=== PATIENT | male | born 1970 | race Caucasian/White ===

== ENCOUNTER 2024-12-11 16:12 | Emergency (ER) | payer SELFPAY ==
--- NOTE | 2024-12-11 16:14 | CTR_ITS ---
PROCEDURE INFORMATION: Exam: CT Head Without Contrast Exam date and time: 12/11/2024 4:16 PM Age: 54 years old Clinical indication: Stroke-like symptoms; Visual disturbance; Additional info: Stroke like symptoms TECHNIQUE: Imaging protocol: Computed tomography of the head without contrast. Radiation optimization: All CT scans at this facility use at least one of these dose optimization techniques: automated exposure control; mA and/or kV adjustment per patient size (includes targeted exams where dose is matched to clinical indication); or iterative reconstruction. Other technique: STROKE PROTOCOL was implemented. COMPARISON: No relevant prior studies available. RADIATION DOSE METRICS: Total DLP (mGy-cm): 1020.91 FINDINGS: Brain: No evidence of intra-axial or extra-axial hemorrhage. No mass effect or midline shift. Shankar-white differentiation is maintained. Basilar cisterns are patent. Cerebral ventricles: No hydrocephalus. Paranasal sinuses: The visualized paranasal sinuses are well aerated. Mastoid air cells: The visualized mastoids and middle ears are clear. Bones: Calvarium is intact. No evidence of acute fracture. Soft tissues: No gross soft tissue abnormality. CT/CT head thrombolytic 20602 IMPRESSION: 1. No acute intracranial abnormality. ASSESSMENT: ASPECTS ([place] Stroke Program Early CT Score) is 10.
[2024-12-11 16:23] VITALS: BP 158/109; PULSE 105; RESP 16; TEMP 36.7; O2SAT 90; BMI 25.9
--- NOTE | 2024-12-11 16:23 | W.ED.GENADLT ---
HPI - General Adult General: Chief complaint: Neuro Symptoms/Deficit Stated complaint: confusion - vision changes Time Seen by Provider: 12/11/24 16:21 History of Present Illness: 54-year-old male presents emergency room stating he had a brief episode where he got very confused disoriented felt like he had been drinking almost and then it resolved. By the time he arrives here he states he is very tired but he has no other symptoms. No loss of consciousness there was no seizure-like activity. Blood pressure elevated. He does have a history of hypertension. No chest pain or abdominal pain has does have a bit of a headache. Associated symptoms: Deny chest pain, dyspnea or rash Related Data Previous Rx's ?Medication ?Instructions ?Recorded aspirin 81 mg tablet,delayed 81 mg PO DAILY #30 tabs 12/11/24 release Allergies Allergy/AdvReac Type Severity Reaction Status Date / Time No Known Allergies Allergy Verified 12/11/24 16:26 Review of Systems Const: Denies: fever(s) or chills Card: Denies: chest pain Resp: Denies: dyspnea GI: Denies: abdominal pain : Denies: dysuria, urinary frequency or urinary urgency Musc: Denies: neck pain or back pain Skin/Breast: Denies: rash Physical Exam Const: GENERAL APPEARANCE: cooperative ORIENTATION/CONSCIOUSNESS: Yes awake, Yes oriented to person, Yes oriented to place and Yes oriented to time HENMT: COMMON NORMALS: normocephalic, atraumatic and hearing grossly normal bilaterally HEAD & SCALP: normocephalic and atraumatic Resp: COMMON NORMALS: normal respiratory effort, No retractions, No use of accessory muscles and clear to auscultation bilaterally AUSCULTATION: clear to auscultation bilaterally Cardio: COMMON NORMALS: regular rate, regular rhythm and No murmurs present (Cardio) RATE: regular rate RHYTHM: regular rhythm GI: COMMON NORMALS: Soft to palpation and No hepatosplenomegaly present AUSCULTATION: Yes normoactive bowel sounds PALPATION: Yes Soft to palpation, No Tenderness to palpation present (GI), No Guarding due to palpation present (GI) and Yes No hepatosplenomegaly present Extremity: COMMON NORMALS: normal to inspection, capillary refill normal, no clubbing, cyanosis or edema, no calf tenderness and no pedal edema Neuro: SENSORIUM/ORIENTATION: Yes oriented to person, Yes oriented to place and Yes oriented to time Skin: COMMON NORMALS: no rashes or lesions noted GENERAL SKIN EXAM: no rashes or lesions noted Course Vital Signs: Vital signs: Vital Signs Temperature 98.1 F 12/11/24 16:23 Pulse Rate 108 H 12/11/24 18:25 Respiratory Rate 16 12/11/24 18:04 Blood Pressure 149/99 12/11/24 18:25 Pulse Oximetry 97 12/11/24 18:25 Oxygen Delivery Me thod Room Air 12/11/24 18:04 MDM - General Adult Medical Decision Making CT head unremarkable patient has returned to baseline is ambulatory without difficulty. Discharge patient home we did give him hydralazine along emergency room for his blood pressure discussed with him to monitor blood pressure closely continue his current medications is not taking them today we did add aspirin daily and follow-up with his primary care doctor as recurrent symptoms return to the emergency room Lab Data 12/11/24 16:45 12/11/24 16:[address] 12/11/24 16:14 IMPRESSION: 1. No acute intracranial abnormality. ASSESSMENT: ASPECTS ([place] Stroke Program Early CT Score) is 10. ADDENDUM: 12/11/24 1632 The findings were verbally communicated by telephone with Dr. BURNS at 4:31 PM CDT on 12/11/2024. Chest X-Ray 12/11/24 16:51 IMPRESSION: 1. No acute cardiopulmonary abnormality. Laboratory Results WBC 6.64 10^3/uL (3.29-11.43) 12/11/24 16:45 RBC 5.17 10^6/uL (3.85-5.65) 12/11/24 16:45 Hgb 16.30 g/dL (11.27-16.99) 12/11/24 16:45 Hct 46.6 % (37-53) 12/11/24 16:45 MCV 90.1 fl (82-101) 12/11/24 16:45 MCH 31.5 pg (27-33) 12/11/24 16:45 MCHC 35.0 g/dL (30-55) 12/11/24 16:45 RDW 12.0 % (12.1-15.1) L 12/11/24 16:45 Plt Count 257 10^3/cmm (157-399) 12/11/24 16:45 MPV 9.1 fL (7.4-10.4) 12/11/24 16:45 Neut % (Auto) 50.4 % 12/11/24 16:45 Lymph % (Auto) 41.6 % 12/11/24 16:45 [place] % (Auto) 5.4 % 12/11/24 16:45 Eos % (Auto) 1.7 % 12/11/24 16:45 Baso % (Auto) 0.6 % 12/11/24 16:45 Neut # (Auto) 3.35 10^3/uL (1.8-7.7) 12/11/24 16:45 Lymph # (Auto) 2.8 10^3/uL (0.8-4.8) 12/11/24 16:45 [place] # (Auto) 0.4 10^3/uL (0.2-0.9) 12/11/24 16:45 Eos # (Auto) 0.1 10^3/uL (0.0-0.8) 12/11/24 16:45 Baso # (Auto) 0.0 10^3/uL (0.0-0.1) 12/11/24 16:45 Nucleated RBC % (auto) 0 % 12/11/24 16:45 Nucleated RBCs # 0.0 /100WBC 12/11/24 16:45 PT 13.10 SECONDS (12.1-14.9) 12/11/24 16:45 INR 0.92 (0.8-1.2) 12/11/24 16:45 APTT 27.7 SECONDS (23.9-36.7) 12/11/24 16:45 Sodium 143 mmol/L (136-145) 12/11/24 16:45 Potassium 3.7 mmol/L (3.5-5.1) 12/11/24 16:45 Chloride 106 mmol/L (98-107) 12/11/24 16:45 Carbon Dioxide 21 mmol/L (22-29) L 12/11/24 16:45 Anion Gap 19.7 (5-19) H 12/11/24 16:45 BUN 13 mg/dL (6-20) 12/11/24 16:45 Creatinine 0.7 mg/dL (0.7-1.2) 12/11/24 16:45 GFR Calculation 118.4 mL/min (90-130) 12/11/24 16:45 Glucose 90 mg/dL (65-115) 12/11/24 16:45 POC Glucose 104 mg/dL (70-110) 12/11/24 16:22 Calculated Osmolality 296 mOsm/kg (285-295) H 12/11/24 16:45 Calcium 8.6 mg/dL (8.5-10.5) 12/11/24 16:45 Total Bilirubin 0.2 mg/dL (0.15-1.2) 12/11/24 16:45 AST 27 U/L (0-40) 12/11/24 16:45 ALT 45 U/L (0-41) H 12/11/24 16:45 Alkaline Phosphatase 72 U/L (40-130) 12/11/24 16:45 Total Protein 7.4 g/dL (6.6-8.7) 12/11/24 16:45 Albumin 4.5 g/dL (3.5-5.2) 12/11/24 16:45 Globulin 2.9 g/dL (1.3-4.6) 12/11/24 16:45 Urine Color Yellow (Yellow) 12/11/24 16:46 Urine Appearance Clear (CLEAR) 12/11/24 16:46 Urine pH 5.5 (5-7) 12/11/24 16:46 Ur Specific [place] 1.008 (1.005-1.030) 12/11/24 16:46 Urine Protein Negative (Negative) 12/11/24 16:46 Urine Glucose (UA) Negative (Normal) 12/11/24 16:46 Urine Ketones Negative (Negative) 12/11/24 16:46 Urine Blood Negative (Negative) 12/11/24 16:46 Urine Nitrate Negative (Negative) 12/11/24 16:46 Urine Bilirubin Negative (Negative) 12/11/24 16:46 Urine Urobilinogen 0.2 mg/dL (Negative) 12/11/24 16:46 Ur Leukocyte Esterase Negative (Negative) 12/11/24 16:46 Urine RBC 0-2 /hpf (0-2) 12/11/24 16:46 Urine WBC 0-5 /hpf (0-5) 12/11/24 16:46 Ur Squamous Epith Cells 0-5 /hpf (0-5) 12/11/24 16:46 Amorphous Sediment Not Reportable 12/11/24 16:46 Urine Bacteria None seen /hpf (NONE) 12/11/24 16:46 Hyaline Casts 0-4 /lpf H 12/11/24 16:46 Urine Opiates Screen Negative ng/mL (Negative) 12/11/24 16:46 Ur Barbiturates Screen Negative ng/mL (Negative) 12/11/24 16:46 Ur Phencyclidine Scrn Negative ng/mL (Negative) 12/11/24 16:46 Ur Amphetamines Screen Negative ng/mL (Negative) 12/11/24 16:46 U Benzodiazepines Scrn Negative ng/mL (Negative) 12/11/24 16:46 Urine Cocaine Screen Negative ng/mL (Negative) 12/11/24 16:46 U Marijuana (THC) Screen Negative ng/mL (Negative) 12/11/24 16:46 All radiology interpretation(s) finalized by discharge Discharge Plan Discharge Patient Disposition: Home Clinical Impression: Headache, Hypertension Condition: Stable Prescriptions: New aspirin 81 mg tablet,delayed release (DR/EC) 81 mg PO DAILY Qty: 30 0RF Discharge Orders: Discharge ED (Routine); Ordered 12/11/24 Ordered By: Kirk Burns Referrals: Carlos Calvo MD [Primary Care Provider] Discharge Diet: Usual diet Discharge Activity: Resume usual activity Patient Instructions: Opioid Safety, Pain Management Activity Restrictions/Additional Instructions: Thank you for choosing [facility] for your healthcare needs today. It is very important that you follow up as instructed or that you return to the Emergency Department should you have concerns or if your condition changes or worsens in any way. You are seen in the emergency room after a episode of weakness and confusion. Your blood pressure was elevated CT of your head and your exam did not suggest stroke at this time. We did give you medicine for your blood pressure. Recommend you follow-up with your primary care doctor to monitor your blood pressure continue all previously prescribed medications. Print Language: Kazakh Coding Level of Care Code ED Knife Blade Polisher for Norberto Borjas NIH stroke score NIHSS Level Of Consciousness - 1a: 0 Level Of Consciousness Questions - 1b: Both Correct Level Of Consciousness Commands - 1c: Both Correct Best Gaze - 2: Normal Visual Gao - 3: No Visual Loss Facial Palsy - 4: Normal Motor Arm Right - 5: No Drift Motor Arm Left - 5: No Drift Motor Leg Right - 6: No Drift Motor Leg Left - 6: No Drift Limb Ataxia - 7: Absent Sensory - 8: Normal Best Language - 9: No Aphasia Dysarthia - 10: Normal Extinction And Inattention - 11: 0 Score Total Score: 0
[2024-12-11 16:25] LABS: Glucose Point of Care 104 mg/dL (70-110)
[2024-12-11 16:49] VITALS: BP 143/100; PULSE 109
--- NOTE | 2024-12-11 16:50 | ECG_ITS ---
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 Measurements Intervals [place] Rate: 97 P: 44 DE: 141 QRS: 44 QRSD: 100 T: 66 QT: 360 QTc: 458 Interpretive Statements SINUS RHYTHM NONSPECIFIC T-WAVE ABNORMALITY No previous ECG available for comparison Electronically Signed On 12-11-2024 21:51:04 CDT by Caroline Beach M.D. [email or web address]
--- NOTE | 2024-12-11 16:51 | XRR_ITS ---
PROCEDURE INFORMATION: Exam: XR Chest Exam date and time: 12/11/2024 5:08 PM Age: 54 years old Clinical indication: Dyspnea; Prior surgery; Surgery date: 6+ months; Surgery type: Spine; Additional info: Dyspnea/cough TECHNIQUE: Imaging protocol: Radiologic exam of the chest. Views: 1 view. COMPARISON: No relevant prior studies available. FINDINGS: Lungs: No focal consolidation. Pleural spaces: No evidence of pneumothorax. No evidence of pleural effusion. Heart/Mediastinum: Cardiomediastinal silhouette is within normal limits. Bones/joints: No evidence of acute osseous abnormality. Simulator leads project over the midthoracic spine. XR/XR chest 1V portable [id number] IMPRESSION: 1. No acute cardiopulmonary abnormality.
[2024-12-11 17:02] LABS: Bilirubin Urine Negative (Negative); Blood Urine Negative (Negative); Glucose Urine UA Negative (Normal); Ketones Urine Negative (Negative); Leukocyte Esterase Urine Negative (Negative); Nitrate Urine Negative (Negative); Protein Urine Negative (Negative); Specific Gravity, Urine 1.008 (1.005-1.030); Urine Appearance Clear (CLEAR); Urine Color Yellow (Yellow); Urobilinogen Urine 0.2 mg/dL (Negative); pH Urine 5.5 (5-7)
[2024-12-11 17:04] LABS: Add Urine Microscopic? YES; Bacteria Urine None Seen /hpf; Hyaline Casts Urine 0-4 /lpf; RBC Urine 0-2 /hpf (0-2); Squamous Epithelial Cell Urine 0-5 /hpf (0-5); WBC Urine 0-5 /hpf (0-5)
[2024-12-11] MEDS: sodium chloride 0.9% 1,000 ML 999 ML IV (17:06)
[2024-12-11 17:11] LABS: Amphetamines Screen Urine Negative (Negative); Barbiturates Screen Urine Negative (Negative); Benzodiazepines Screen Urine Negative (Negative); Cocaine Screen Urine Negative (Negative); Opiate Screen Urine Negative (Negative); PCP Screen Urine Negative (Negative); THC Screen Urine Negative (Negative)
[2024-12-11 17:15] LABS: Basophils % 0.6 %; Eosinophils # 0.1 10^3/uL (0.0-0.8); Eosinophils % 1.7 %; Hematocrit 46.6 % (37-53); Lymphocytes # 2.8 10^3/uL (0.8-4.8); Lymphocytes % 41.6 %; Mean Corpuscular Hemoglobin 31.5 pg (27-33); Mean Corpuscular Volume 90.1 fl (82-101); Mean Platelet Volume 9.1 fL (7.4-10.4); Monocytes # 0.4 10^3/uL (0.2-0.9); Monocytes % 5.4 %; Neutrophils # 3.35 10^3/uL (1.8-7.7); Neutrophils % 50.4 %; Nucleated Red Blood Cells % 0 %; Platelet Count 257 10^3/cmm (157-399); Red Blood Count 5.17 10^6/uL (3.85-5.65); White Blood Count 6.64 10^3/uL (3.29-11.43)
[2024-12-11 17:28] LABS: INR 0.92 (0.8-1.2)
[2024-12-11 17:29] LABS: Partial Thromboplastin Time 27.7 SECONDS (23.9-36.7)
[2024-12-11 17:33] LABS: Alanine Aminotransferase 45 U/L (0-41); Albumin Level 4.5 g/dL (3.5-5.2); Alkaline Phosphatase 72 U/L (40-130); Anion Gap 19.7 (5-19); Aspartate Amino Transferase 27 U/L (0-40); Blood Urea Nitrogen 13 mg/dL (6-20); Calcium 8.6 mg/dL (8.5-10.5); Carbon Dioxide 21 mmol/L (22-29); Chloride 106 mmol/L (98-107); Creatinine Clr Calc Pharmacy 129.8223; Globulin 2.9 g/dL (1.3-4.6); Glomerular Filtration Rate 118.4 mL/min (90-130); Glucose 90 mg/dL (65-115); Osmolality Calculated 296 mOsm/kg (285-295); Potassium 3.7 mmol/L (3.5-5.1); Sodium 143 mmol/L (136-145); Total Protein 7.4 g/dL (6.6-8.7)
[2024-12-11 17:54] VITALS: BP 147/105; PULSE 90; RESP 20; O2SAT 92
[2024-12-11 18:04] VITALS: BP 180/113; PULSE 86; RESP 16; O2SAT 91
[2024-12-11 18:15] LABS: Total Bilirubin 0.2 mg/dL (0.15-1.2)
[2024-12-11] MEDS: hyDRALAzine 20 mg/mL INJ 1 mL 10 MG IVP (18:17)
[2024-12-11 18:25] VITALS: BP 149/99; PULSE 108; O2SAT 97
== END 2024-12-11 18:29 | disposition home or self-care (01) ==
PROVIDERS: Emergency Provider Family Medicine; PCP Family Medicine
DX: R51.9 Headache, unspecified (principal); I10 Essential (primary) hypertension
CPT/HCPCS: 36416; 70450; 71045; 80053; 80306; 81001; 82962; 85025; 85610; 85730; 93005; 96361; 96374; 99285; J0360; J7030

== ENCOUNTER 2025-06-18 11:08 | Emergency (ER) | payer BC, SELFPAY ==
--- NOTE | 2025-06-18 11:09 | XR_ITS ---
WS: [id number] Portable AP upright chest, 06/18/2025 Clinical Data: chest pain Comparison: Portable chest, 12/11/2024 Findings: No nodules, masses or effusions are seen. The heart is normal. The pulmonary vascularity is not increased. No pneumonia or pneumothorax is seen. Monitor leads are on the chest wall. XR/XR chest 1V portable [id number] Impression: Negative chest.
--- NOTE | 2025-06-18 11:09 | ECG_ITS ---
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1970 Requested By: Kirk Marshall Order Number: [id number] Reading MD: KELLEY MCFARLAND Measurements Intervals [place] Rate: 83 P: 31 [place]: 116 QRS: 53 QRSD: 122 T: 57 QT: 376 QTc: 444 Interpretive Statements SINUS RHYTHM WITH SHORT [place] INTERVAL MODERATE INTRAVENTRICULAR CONDUCTION DELAY [110+ ms QRS DURATION] NONSPECIFIC T-WAVE ABNORMALITY Compared to ECG 12/11/2024 16:50:45 Short [place] interval now present Intraventricular conduction delay now present T-wave abnormality still present Electronically Signed On 06-19-2025 11:57:52 IMMIGRATION CONSULTANT by KELLEY MCFARLAND [email or web address]
--- NOTE | 2025-06-18 11:10 | W.ED.CHESTPA ---
HPI - Chest Pain General: Chief Complaint: Chest Pain Stated Complaint: chest pain Time Seen by Provider: 06/18/25 11:09 History of Present Illness: 55-year-old male presents emergency room with complaint of chest discomfort numbness and tingling throughout his body particularly highlights his face and his lower extremities began this morning is already resolved it was bilateral when it was present. In his lower extremities it was from the knees to his feet. He has had a moderately productive cough had a few episodes of diarrhea he thinks it is because he drank some remington and whiskey last night as a home cough remedy. He is otherwise awake and alert there is no focal deficits. He has no history of PE or DVT he is not on any anticoagulants. He has no history of any arrhythmias or coronary artery disease he is pain-free at this time. The chest pressure discomfort as he describes it has been intermittent for the last several months. Associated symptoms: Reports dyspnea; Deny abdominal pain or fever(s) Related Data Home Medications ?Medication ?Instructions ?Recorded ?Confirmed azelastine 137 mcg (0.1 %) nasal 2 spray intranasal BID 06/18/25 06/18/25 spray clonidine HCl 0.1 mg tablet See Rx Instructions .Route 06/18/25 06/18/25 .COMPLEX PRN Blood Pressure fluticasone propionate 50 2 spray intranasal DAILY 06/18/25 06/18/25 mcg/actuation nasal spray,suspension irbesartan 75 mg tablet 75 mg PO BEDTIME 06/18/25 06/18/25 methocarbamol 750 mg tablet 750 mg PO TID 06/18/25 06/18/25 naproxen 500 mg tablet 500 mg PO BID PRN Pain 06/18/25 06/18/25 pantoprazole 20 mg tablet,delayed 20 mg PO DAILY 06/18/25 06/18/25 release Previous Rx's ?Medication ?Instructions ?Recorded aspirin 81 mg tablet,delayed 81 mg PO DAILY #30 tabs 12/11/24 release Allergies Allergy/AdvReac Type Severity Reaction Status Date / Time No Known Allergies Allergy Verified 12/11/24 16:26 Review of Systems Const: Denies: fever(s) or chills Card: Reports: chest pain Resp: Reports: dyspnea and productive cough GI: Reports: diarrhea; Denies: abdominal pain : Denies: dysuria, urinary frequency or urinary urgency Musc: Denies: neck pain or back pain Skin/Breast: Denies: rash Physical Exam Const: GENERAL APPEARANCE: cooperative ORIENTATION/CONSCIOUSNESS: Yes awake, Yes oriented to person, Yes oriented to place and Yes oriented to time HENMT: COMMON NORMALS: normocephalic, atraumatic and hearing grossly normal bilaterally HEAD & SCALP: normocephalic and atraumatic Resp: COMMON NORMALS: normal respiratory effort, No retractions, No use of accessory muscles and clear to auscultation bilaterally AUSCULTATION: clear to auscultation bilaterally Cardio: COMMON NORMALS: regular rate, regular rhythm and No murmurs present (Cardio) RATE: regular rate RHYTHM: regular rhythm GI: COMMON NORMALS: Soft to palpation and No hepatosplenomegaly present AUSCULTATION: Yes normoactive bowel sounds PALPATION: Yes Soft to palpation, No Tenderness to palpation present (GI), No Guarding due to palpation present (GI) and Yes No hepatosplenomegaly present Extremity: COMMON NORMALS: normal to inspection, capillary refill normal, no clubbing, cyanosis or edema, no calf tenderness and no pedal edema Neuro: SENSORIUM/ORIENTATION: Yes oriented to person, Yes oriented to place and Yes oriented to time Skin: COMMON NORMALS: no rashes or lesions noted GENERAL SKIN EXAM: no rashes or lesions noted Course Vital Signs: Vital signs: Vital Signs Temperature 98.1 F 06/18/25 11:14 Pulse Rate 82 06/18/25 13:46 Respiratory Rate 14 06/18/25 13:00 Blood Pressure 141/102 06/18/25 13:46 Pulse Oximetry 95 06/18/25 13:46 Oxygen Delivery Me thod Room Air 06/18/25 13:00 MDM - Chest Pain Medical Decision Making Medical decision making Social determinants: None I reviewed the patient's medical record. I reviewed the patient's current home meds. Alternate historians: None Differential diagnosis: Pneumonia, COVID, flu, RSV, acute coronary syndrome, hyperventilation Lab Review: Chest x-ray negative no acute infiltrates effusions or increased pulmonary vascular markings. Imaging: Chest x-ray no cardiomegaly no infiltrates no effusions. Normal osseous structures as seen no widening of the mediastinum and no subdiaphragmatic free air. No acute findings noted Assessment of risk Level of risk: Low to moderate Hospitalization considerations: Evaluate for acute coronary syndrome or pneumonia as possible indications for hospitalization Reexamination: Chest pain resolved with no symptoms at this time Assessment and plan: Cardiac enzymes negative EKG is unremarkable. The patient has had this for months has not had any significant Valentina-E suspect over the baby related to reflux and esophagitis. Increase his pantoprazole to twice a day. Recommend he follow-up with his primary care doctor for outpatient stress testing and possible EGD. I also believe he has a mild viral infection based on his upper respiratory symptoms treat symptomatically flu COVID and RSV were negative vital signs otherwise stable. Lab Data 06/18/25 11:30 06/18/25 11:30 Radiology Impressions Chest X-Ray 06/18/25 11:09 Impression: Negative chest. Laboratory Results WBC 8.06 10^3/uL (3.29-11.43) 06/18/25 11:30 RBC 5.40 10^6/uL (3.85-5.65) 06/18/25 11:30 Hgb 16.60 g/dL (11.27-16.99) 06/18/25 11:30 Hct 47.8 % (37-53) 06/18/25 11:30 MCV 88.5 fl (82-101) 06/18/25 11:30 MCH 30.7 pg (27-33) 06/18/25 11:30 MCHC 34.7 g/dL (30-55) 06/18/25 11:30 RDW 11.3 % (12.1-15.1) L 06/18/25 11:30 Plt Count 186 10^3/cmm (157-399) 06/18/25 11:30 MPV 9.4 fL (7.4-10.4) 06/18/25 11:30 Neut % (Auto) 62.3 % 06/18/25 11:30 Lymph % (Auto) 30.3 % 06/18/25 11:30 [place] % (Auto) 5.5 % 06/18/25 11:30 Eos % (Auto) 1.2 % 06/18/25 11:30 Baso % (Auto) 0.5 % 06/18/25 11:30 Neut # (Auto) 5.02 10^3/uL (1.8-7.7) 06/18/25 11:30 Lymph # (Auto) 2.4 10^3/uL (0.8-4.8) 06/18/25 11:30 [place] # (Auto) 0.4 10^3/uL (0.2-0.9) 06/18/25 11:30 Eos # (Auto) 0.1 10^3/uL (0.0-0.8) 06/18/25 11:30 Baso # (Auto) 0.0 10^3/uL (0.0-0.1) 06/18/25 11:30 Nucleated RBC % (auto) 0 % 06/18/25 11:30 Nucleated RBCs # 0.0 /100WBC 06/18/25 11:30 Sodium 141 mmol/L (136-145) 06/18/25 11:30 Potassium 3.7 mmol/L (3.5-5.1) 06/18/25 11:30 Chloride 102 mmol/L (98-107) 06/18/25 11:30 Carbon Dioxide 23 mmol/L (22-29) 06/18/25 11:30 Anion Gap 19.7 (5-19) H 06/18/25 11:30 BUN 8 mg/dL (6-20) 06/18/25 11:30 Creatinine 0.7 mg/dL (0.7-1.2) 06/18/25 11:30 GFR Calculation 118.0 mL/min (90-130) 06/18/25 11:30 Glucose 103 mg/dL (65-115) 06/18/25 11:30 Calculated Osmolality 291 mOsm/kg (285-295) 06/18/25 11:30 Calcium 8.9 mg/dL (8.5-10.5) 06/18/25 11:30 Total Bilirubin 0.5 mg/dL (0.15-1.2) 06/18/25 11:30 AST 22 U/L (0-40) 06/18/25 11:30 ALT 17 U/L (0-41) 06/18/25 11:30 Alkaline Phosphatase 87 U/L (40-130) 06/18/25 11:30 Troponin T Baseline < 6 ng/L (0-15) 06/18/25 11:30 Troponin T 60 Minute < 6.0 ng/L (0-15) 06/18/25 12:49 Delta Troponin T 0 ABS# (0-10) 06/18/25 12:49 Total Protein 6.9 g/dL (6.6-8.7) 06/18/25 11:30 Albumin 4.9 g/dL (3.5-5.2) 06/18/25 11:30 Globulin 2.0 g/dL (1.3-4.6) 06/18/25 11:30 Influenza A (PCR) Negative (Negative) 06/18/25 11:27 Influenza Type B (PCR) Negative (Negative) 06/18/25 11:27 RSV (PCR) Negative (Negative) 06/18/25 11:27 SARS-CoV-2 (PCR) Negative (Negative) 06/18/25 11:27 All radiology interpretation(s) finalized by discharge EKG Data EKG 1: I personally reviewed and interpreted this EKG as follows: Interpretation: EKG 06/18/2025 11:13 AM sinus rhythm with a rate of 83 NC interval 116 QTc 416 nondiagnostic Q waves in 2 [address]VF[address] No acute [address] elevation or depression. Compared to EKG 12/11/2024 no new changes. EKG 2: I personally reviewed and interpreted this EKG as follows: Interpretation: EKG 06/18/2025 sinus rhythm rate of 76 NC interval 133 QTc [address] changes no ST elevation noted. No change from EKG done earlier same day Discharge Plan Discharge Patient Disposition: Home Clinical Impression: Atypical chest pain, Acute viral syndrome Condition: Stable Prescriptions: No Action aspirin 81 mg tablet,delayed release (DR/EC) 81 mg PO DAILY Qty: 30 0RF clonidine HCl 0.1 mg tablet See Rx Instructions .ROUTE .COMPLEX PRN (Reason: Blood Pressure) Rx Instructions: TAKE 1 TABLET BY MOUTH THREE TIMES DAILY NEEDED ONLY IF SYSTOLIC > 190 OR DIASTOLIC >90 pantoprazole 20 mg tablet,delayed release (DR/EC) 20 mg PO DAILY methocarbamol 750 mg tablet 750 mg PO TID irbesartan 75 mg tablet 75 mg PO BEDTIME azelastine 137 mcg (0.1 %) spray,non-aerosol 2 spray INTRANASAL BID fluticasone propionate 50 mcg/actuation spray,suspension 2 spray INTRANASAL DAILY naproxen 500 mg tablet 500 mg PO BID PRN (Reason: Pain) Discharge Orders: Discharge ED (Routine); Ordered 12/22/25 Ordered By: Kirk Burns Referrals: Carlos Calvo MD [Primary Care Provider, Family Practice] Discharge Diet: Usual diet Discharge Activity: Resume usual activity Patient Instructions: Chest Pain (ED), Opioid Safety, Pain Management, Patient Portal & Saroj Instructions Activity Restrictions/Additional Instructions: [email or web address]. It is very important that you follow up as instructed or that you return to the Emergency Department should you have concerns or if your condition changes or worsens in any way. Emergency department visits are focused on emergent conditions, in some cases you may require further evaluation on an outpatient basis. You are seen emergency room's complaint of chest pain for last several months cardiac enzymes and EKG did not show any acute changes. Chest x-ray was normal. Some of your other symptoms are more suggestive of a viral infection such as gastroenteritis. Test for flu COVID and RSV were negative. Vital signs are otherwise stable there is no acute diagnosis noted on your exam or evaluation. Will discharge you home recommend you follow-up with your primary care doctor to discuss further evaluation including possible stress test continue your current medications especially baby aspirin daily. Return to emergency room if any change in symptoms. (Please note that included in your discharge packet is information concerning opioid safety and pain management. This information is given to all patients were discharged from the ER regardless of their discharge diagnosis or the medicines they usually take or are prescribed.) Print Language: Thai Coding Level of Care Code ED Sustainability Engineer for Deang Fwd Heart Score HEART Score Components History: Slightly Suspicous EKG: Normal Age: 45-64 yrs Risk Factors: No Risk Factors Known Troponin: Baseline Trop <16 ng/L HEART Score RESULT HEART Score: 1
[2025-06-18 11:14] VITALS: BP 140/104; PULSE 89; RESP 16; TEMP 36.7; O2SAT 97; BMI 23.6
--- OUTSIDE RECORDS SUMMARY | 2025-06-18 11:24 | XMS_ITS | Encounter Summary ---
Author Organization [facility] Address [address] [place] [address] Care Team Providers Care Cryptologic Linguist Name Role Phone Carlos Calvo MD Primary Care Provider [phone] Encounter Details Date Type Department Care Team (Late Contact Info) Description 06/12/2025 External Device Data [place] ABSTRACTION Provider, Abstract NO ADDRESS ON FILE Social History Tobacco Use Types Packs/Day Years Used Date Smoking Tobacco: Former Cigarettes Passive Smoke Exposure: Past Smokeless Tobacco: Never Comments:Quit smoking: d/c'd on Apr 10, 2013 Alcohol Use Standard Drinks/Week Comments Not Currently 0 (1 standard drink = 0.6 oz pure alcohol) various drinks 2 times per week normaly on the weekends Feeling Safe Answer Date Recorded Are you in a relationship wi th someone who hurts you emotionally and/or physically? No 03/14/2025 Sex and Gender Information Value Date Recorded Sex Assigned at Not on file Legal Sex Male 3:19 PM ASSET PROTECTION SPECIALIST Gender Identity Not on file Sexual Orientation Not on file documented as of this encounter Plan of Treatment Upcoming Encounters Date Type Department Care Team (Late Contact Info) Description 07/04/2025 8:00 AM ASSET PROTECTION SPECIALIST Office Visit [facility] Family Medicine [place] [address] [phone] Carlos Calvo MD [address] [phone] 08/07/2025 9:30 AM ASSET PROTECTION SPECIALIST Procedure visit [facility] Audiology [address] [place] [phone] Marlee Donahue AU.D [address] [place] [phone] 08/07/2025 10:15 AM ASSET PROTECTION SPECIALIST Office Visit [facility] Ear, Nose and Throat [address] [place] [phone] Gavin Venegas MD [address] [place] [phone] documented as of this encounter Visit Diagnoses Not on filedocumented in this encounter Care Teams Cryptologic Linguist Relationship Specialty Start Date End Date Carlos Calvo MD [address] [place] [phone] PCP - General Family Practice 04/13/24 documented as of this encounter
--- OUTSIDE RECORDS SUMMARY | 2025-06-18 11:24 | XMS_ITS | Clinical Summary ---
Author Organization [facility] Address [address] [place] [address] Care Team Providers Care Printing Sales Representative Name Role Phone Rosa Isela Medrano WAFER ABRADING MACHINE TENDER Primary Care Provider [phone] Allergies No known active allergies Medications OTHER Tens Unit Please give printed order to patient to take to the DME store 1 Each 0 08/13/2011 Active gabapentin (NEURONTIN) 300 mg Oral capsule Take 300 mg by mouth 2 times daily. Active naproxen (NAPROSYN) 500 mg tablet Take 500 mg by mouth 2 times daily with meals. Active Active Problems Problem Noted Date Diagnosed Date Post laminectomy syndrome 07/28/2011 Low back pain radiating to right leg 04/23/2011 DDD (degenerative disc disease), lumbar 04/23/20 11 Lumbar radiculopathy 04/23/2011 Resolved Problems Problem Noted Date Diagnosed Date Resolved Date Herniated lumbar intervertebral disc 05/27/2011 07/28/2011 Overview (05/27/2011): To right at L5-S1 Social History Tobacco Use Types Packs/Day Years Used Date Smoking Tobacco: Former Pipe Smokeless Tobacco: Never Comments:d/c'd on Apr 10 13 Alcohol Use Standard Drinks/Week Comments No 0 (1 standard drink = 0.6 oz pur e alcohol) Sex and Gender Information Value Date Recorded Sex Assigned at Not on file Legal Sex Male 2:58 AM BOTTLE PACKER Gender Identity Not on file Sexual Orientation Not on file Occupation Industry Job Start Date Job End Date Not on file Not on file Not on file Not on file Last Filed Vital Signs Vital Sign Reading Time Taken Comments Blood Pressure 125/93 11/19/2015 9:00 AM CDT Pulse 68 11/19/2015 9:00 AM CDT Temperature 36.6 C (97.9 F) 11/19/2015 8:01 AM CDT Respiratory Rate 17 11/19/2015 8:46 AM CDT Oxygen Saturation 96% 11/19/2015 9:00 AM CDT Inhaled Oxygen Concentration - - Weight 70.3 kg (155 lb) 11/19/2015 8:01 AM CDT Height 175.3 cm (5' 9 ) 11/19/2015 8:01 AM CDT Body Mass Index 22.89 11/19/2015 8:01 AM CDT Plan of Treatment Health Maintenance Due Date Last Done Comments DTAP/TDAP/TD VACCINES (1 - Tdap) 1991 HEPATITIS B VACCINES (1 of 3 - 19+ 3-dose series) 04/28 COLORECTAL SCREENING 2017 Colorectal Cancer Screening 2017 FIT-DNA Q 3 years 2017 FIT/FOBT Q 1 year 2017 Flex Sig/CT Colonography Q 5 years 2017 ZOSTER VACCINE (1 of 2) 2022 INFLUENZA VACCINE (#1) 2025 Medical Devices Implanted Type Area Travel Administrator Device Identifier Shelf Expiration Date Model / Serial / Lot Medtronic Injex Bumpy [place] Implanted:Qty: 1 on 06/13/2012 by Ganesh Zepeda MD at [facility] [place] N/A: Back 04/06/2016 [id number] / / [id number] Medtronic Lead Kit Implanted:Qty: 2 on 06/13/2012 by Ganesh Zepeda MD at [facility] Lead N/A: Back 09/22/2015 [id number] / / [id number] Medtronic Restore Sensor Implanted:Qty: 1 on 06/13/2012 by Ganesh Zepeda MD at [facility] N/A: Back 04/10/2013 [id number] / [id number] / Medtronic Patient Court Of Appeals Judge Implanted:Qty: 1 on 06/13/2012 at [facility] [id number] / [id number] / Description:Moved from suppl y list. This item is charged as an implant as it is integral to the operation of the implant itself. Per Charge Master Advance Directives For more information, please contact: [phone] * Full Code (Latest Code Status on File) Date Activated Date Inactivated Comments 06/13/2012 1:44 PM 06/14/2012 2:01 AM * Full Code Date Activated Date Inactivated Comments 06/13/2012 12:25 PM 06/13/2012 1:44 PM * Full Code Date Activated Date Inactivated Comments 05/27/2011 12:58 PM 05/28/2011 1:09 PM * Full Code Date Activated Date Inactivated Comments 05/27/2011 10:38 AM 05/27/2011 12:58 PM Care Teams Printing Sales Representative Relationship Specialty Start Date End Date Rosa Isela Medrano FNP [address] [place] [phone] PCP - General NURSE PRACTITIONER 08/02/13
--- OUTSIDE RECORDS SUMMARY | 2025-06-18 11:24 | XMS_ITS | Clinical Summary ---
Author Organization [facility] Address [address] [place]: Epic Prelude ADT TRAM [place] [address] Care Team Providers Care Molder Operator Name Role Phone Carlos Calvo MD Primary Care Provider [phone] Allergies Active Allergy Reactions Criticality Noted Date Comments Penicillin Other (See Comments) 05/03/2025 Throat hoarseness Medications cholecalciferol 1,250 mcg (50,000 unit) Capsule TAKE ONE CAPSULE BY MOUTH EVERY 7 DAYS 12 Capsule 3 08/08/19 25 Active pantoprazole (PROTONIX) 20 mg Tablet, Delayed Release (E.C.)Indication s:Heartburn Take 1 Tablet (20 mg) by mouth daily. 90 Tablet 3 11/28/19 25 Active Irbesartan (AVAPRO) 75 mg tabletIndication s:Essential hypertension Take 1 Tablet (75 mg) by mouth daily at bedtime. 90 Tablet 1 11/28/19 25 Active cloNIDine HCL (CATAPRES) 0.1 mg tabletIndication s:Essential hypertension Take 1 Tablet (0.1 mg) by mouth 3 times daily. 90 Tablet 1 11/28/19 25 Active naproxen (NAPROSYN) 500 mg tabletIndication s:Acute low back pain without sciatica, unspecified back pain laterality,Neck pain TAKE 1 TABLET BY MOUTH TWICE DAILY NEEDED FOR PAIN 90 Tablet 2 03/08/20 25 Active oxyCODONE-acetam inophen (Percocet) 5-325 mg tabletIndication s:Chronic pain syndrome,Failure of spinal cord stimulator, subsequent encounter,Pain due to any device, implant or graft, subsequent encounter Take 1 Tablet by mouth 2 times daily as needed for Pain, Moderate, Pain, Break-Through or Other (See Comment) (post op pain). Max Daily Amount: 2 Tablets 13 Tablet 03/14/20 Active azelastine (ASTELIN) 137 mcg/actuation nasal spray Administer 2 Sprays in each nostril 2 times daily. 1 mL 11 05/03/20 Active fluticasone propionate (FLONASE) 50 mcg/spray [place], Suspension nasal inhaler Administer 2 Sprays in each nostril daily. 16 Gram 11 05/03/20 25 Active methocarbamoL (ROBAXIN) 750 mg tabletIndication s:Acute low back pain without sciatica, unspecified back pain laterality,Neck pain TAKE TWO TABLETS BY MOUTH THREE TIMES DAILY 90 Tablet 1 05/22/20 Active methocarbamoL (ROBAXIN) 750 mg tabletIndication s:Acute low back pain without sciatica, unspecified back pain laterality,Neck pain Take 2 Tablets (1,500 mg) by mouth 3 times daily. 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 Discussed at length the importance of prompt emergent care. Essential hypertension 04/23/2023 Mixed hyperlipidemia 04/23/2023 Fatty infiltration of liver 02/10/2021 Post laminectomy syndrome 07/28/2011 Low back pain radiating to right leg 04/23/2011 Spondylosis of lumbar region without myelopathy or radiculopathy 04/23/2011 Lumbar radiculopathy 04/23/2011 Resolved Problems Problem Noted Date Diagnosed Date Resolved Date Herniated lumbar intervertebral disc 05/27/2011 07/28/2011 Overview (10/23/2020): To right at L5-S1 Encounters Date Type Department Care Team Description 06/12/2025 External Device Data STL ABSTRACTION Provider, Abstract 05/29/2025 External Device Data STL ABSTRACTION Provider, Abstract 05/20/[address] [phone] Carlos Calvo MD Acute low back pain without sciatica, unspecified back pain laterality; Neck pain 05/15/2025 External Device Data STL ABSTRACTION Provider, Abstract 05/03/2025 10:30 AM RESEARCH SPECIALIST Office Visit [facility] Ear, Nose and Throat [address] [place] [phone] Gavin Venegas MD Dysfunction of both eustachian tubes (Primary Dx); Conductive hearing loss, bilateral 05/01/2025 External Device Data STL ABSTRACTION Provider, Abstract 05/01/2025 External Device Data STL ABSTRACTION Provider, Abstract 04/27/2025 Patient Self-Triage [facility] [address] [facility] [place] [address] 04/26/2025 1:00 PM CDT Procedure visit [facility] Audiology [address] [place] [phone] Matilda Hoyt [facility] History of otitis media (Primary Dx) 04/26/[address] [phone] Carlos Calvo MD Patient Communication 04/26/[address] [phone] Carlos Calvo MD Acute low back pain without sciatica, unspecified back pain laterality; Neck pain 04/25/2025 External Device Data STL ABSTRACTION Provider, Abstract 04/18/2025 External Device Data STL ABSTRACTION Provider, Abstract 04/15/[address] [phone] Jonnie Richards MD Chronic pain syndrome; Failure of spinal cord stimulator, subsequent encounter; Pain due to any device, implant or graft, subsequent encounter 04/03/2025 External Device Data STL ABSTRACTION Provider, Abstract from Last 3 Months Immunizations Immunization Administration Dates Next Due INFLUENZA VACCINE QUADRIVALENT 6 MOS UP PF IM Influenza Seasonal Unspecified Formulation PF IM 03/13/2015 Social History Tobacco Use Types Packs/Day Years Used Date Smoking Tobacco: Former Cigarettes Passive Smoke Exposure: Past Smokeless Tobacco: Never Tobacco Cessation:Counseling Given: Not Answered Comments:Quit smoking: d/c'd on Apr 10, 2013 [...] on file Legal Sex Male 3:19 PM RESEARCH SPECIALIST Gender Identity Not on file Sexual Orientation Not on file Last Filed Vital Signs Vital Sign Reading Time Taken Comments Blood Pressure 140/90 05/03/2025 10:34 AM RESEARCH SPECIALIST Pulse 71 03/14/2025 1:53 PM CDT Temperature 36.1 C (97 F) 03/14/2025 1:23 PM CDT Respiratory Rate 16 03/14/2025 1:53 PM CDT Oxygen Saturation 97% 03/14/2025 1:53 PM CDT Inhaled Oxygen Concentration - - Weight 83.4 kg (183 lb 12.8 oz) 025 10:34 AM RESEARCH SPECIALIST Height 175.3 cm (5' 9 ) 05/03/2025 10:3 4 AM RESEARCH SPECIALIST Body Mass Index 27.14 05/03/2025 10:34 AM RESEARCH SPECIALIST Plan of Treatment Upcoming Encounters Date Type Department Care Team (Late st Contact Info) Description 07/04/2025 8:00 AM RESEARCH SPECIALIST Office Visit [address] [phone] Carlos Calvo MD [address] [phone] 08/07/2025 9:30 AM RESEARCH SPECIALIST Procedure visit [facility] Audiology [address] [place] [phone] Marlee Donahue AU.D [address] [place] [phone] 08/07/2025 10:15 AM RESEARCH SPECIALIST Office Visit [facility] Ear, Nose and Throat [address] [place] [phone] Gavin Venegas MD [address] [place] [phone] Health Maintenance Due Date Last Done Comments DTAP/TDAP/TD VACCINES (1 - Tdap) 1991 HEPATITIS B VACCINES (1 of 3 - 19+ 3-dose series) 1991 COLORECTAL SCREENING 2017 Colorectal Cancer Screening 2017 FIT-DNA Q 3 years 2017 FIT/FOBT Q 1 year 2017 Flex Sig/CT Colonography Q 5 years 2017 ZOSTER VACCINE (1 of 2) 2022 Preventative Visit- Commercial 06/28/2024 10/13/2022 INFLUENZA VACCINE (#1) 2025 07/06/2017, 2014 Pre-Diabetes and Diabetes Screening 09/22/202609/22 Abdominal Aortic Aneurysm (AAA) Screening Completed 01/24/2021 Medical Devices Explanted Type Area Soliciting Freight Agent Device Identifier Shelf Expiration Date Model / Serial / Lot Medtronic Injex Bumpy [place] Implanted:Qty: 1 on 06/13/2012 by Ganesh Zepeda MD Explanted:Qty: 1 on 03/14/2025 by Jonnie Richards MD at [facility] [place] N/A: Back 04/06/2016 [id number] / / [id number] Medtronic Lead Kit Implanted:Qty: 2 on 06/13/2012 by Ganesh Zepeda MD Explanted:Qty: 2 on 03/14/2025 by Jonnie Richards MD at [facility] Lead N/A: Back 09/22/2015 [id number] / / [id number] Description:Discarded per Dr Richards/policy Medtronic Patient Carpentry Teacher Implanted:Qty: 1 on 06/13/2012 Explanted:Qty: 1 on 03/14/2025 by Jonnie Richards MD at [facility] [id number] / [id number] / Description:Moved from suppl y list. This item is charged as an implant as it is integral to the operation of the implant itself. Per Charge Master Medtronic Restore Sensor Implanted:Qty: 1 on 06/13/2012 by Ganesh Zepeda MD Explanted:Qty: 1 on 03/14/2025 by Jonnie Richards MD at [facility] N/A: Back 04/10/2013 [id number] / [id number] / Procedures Procedure Name Priority Date/Time Associated Diagnosis Comments [place] TYMPANOMETRY Routine 04/26/2025 2:50 PM CDT History of otitis media [place] COMPRE AUDIOMETRY THRESHOLD EVAL SP RECOGNIJ Routine 04/26/2025 1:24 PM CDT History of otitis media HEMOGLOBIN A1C Routine 09/23/2023 9:50 AM CDT Encounter for routine adult health examination without abnormal findings US ABDOMEN COMPLETE Routine 01/24/2021 8 :44 AM CDT LUQ abdominal pain from Last 3 Months or Most Recently Relevant to Health Maintenance Results * [place] TYMPANOMETRY (04/26/2025 2:50 PM CDT) Narrative Matilda Hoyt CCC-A - 04/26/2025 2:50 PM CDT Matilda Hoyt CCC-A 04/26/2025 2:50 PM Tympanometric results: See Scanned Images Right Ear: Jerger Type C (1.5 ear canal volume; 0.26 compliance; -169 middle ear pressure) Left Ear: Jerger Type C (2.0 ear canal volume; 0.16 compliance; 161 middle ear pressure) c/w eustachian tube dysfunction bilaterally. Matilda Hoyt CCC-A AUDIOLOGY SERVICES ORDERA BLES Final Result * [place] COMPRE AUDIOMETRY THRESHOLD EVAL SP RECOGNIJ (04/26/2025 1:24 PM CDT) Narrative Matilda Hoyt CCC-A - 04/26/2025 1:24 PM CDT Matilda Hoyt CCC-A 04/26/2025 2:50 PM SUBJECTIVE: Grey Dupree is a 54 y.o. male seen today for audiologic evaluation. Mr. Dupree reports history of otitis media, ear pain and dizziness. He reports that his left ear is uncomfortable today; however yesterday he was having more difficulty in his right ear. He denies any recent ear drainage or previous history of ear surgery. Mr. Dupree states he has significant history of occupational noise exposure. OBJECTIVE: Patient was referred by CAMDEN Lobato and was seen prior to medical evaluation with ENT provider. ASSESSMENT: Speech Track Fitter Threshold:(live voice) Right Ear: 25 dB HL Left Ear: 20 dB HL Word Recognition Testing: (recorded) Right: 92 % presented at 55 dB HL (-- dB masking) Left: 96 % presented at 55 dB HL (-- dB masking) Pure Tone Testing: Right Ear: mild conductive hearing loss Left Ear: mild conductive hearing loss Tympanometric results: See Scanned Images Right Ear: Jerger Type C (1.5 ear canal volume; 0.26 compliance; -169 middle ear pressure) Left Ear: Jerger Type C (2.0 ear canal volume; 0.16 compliance; 161 middle ear pressure) c/w eustachian tube dysfunction bilaterally. Patient test reliability was good. (Thorpe #3; Transducer: insert PHONES; Word List:[id number]) PLAN: It was recommended that the patient follow-up with the ENT provider as planned for further medical evaluation. Mr. Dupree was initially scheduled to see Dr. Venegas today; however that appointment was canceled as Dr. Venegas was out of the clinic today. Offered him an appointment with Dr. Pennington later this afternoon; however Mr. Dupree preferred to reschedule his appointment with Dr. Venegas. He was assisted with appointment rescheduling at check out. Mr. Dupree was counseled that this provider is unable to diagnose ear infection and he would need to see ENT for further recommendations and medical advice. Matilda Hoyt CCC-A AUDIOLOGY SERVICES ORDERA BLES Final Result * HEMOGLOBIN A1C (09/23/2023 9:50 AM CDT) HEMOGLOBIN A1C 5.2 <5.7 % of total Hgb [facility] Comment: For the purpose of screening for the presence of diabetes: <5.7% Consistent with the absence of diabetes 5.7-6.4% Consistent with increased risk for diabetes (prediabetes) > or =6.5% Consistent with diabetes This assay result is consistent with a decreased risk of diabetes. Currently, no consensus exists regarding use of hemoglobin A1c for diagnosis of diabetes in children. According to [place] Diabetes Association (ADA) guidelines, hemoglobin A1c <7.0% represents optimal control in non- diabetic patients. Different metrics may apply to specific patient populations. Standards of Medical Care in Diabetes(ADA). ESTIMATED AVERAGE GLUCOSE (MG/DL) 103 mg/dL [facility] ESTIMATED AVERAGE GLUCOSE (MMOL/L) 5.7 mmol/L [facility] Comment: This test was performed on the [place] denny c503 platform. Effective 09/13/23, a change in test platforms from the [employer] Patient Care Representative to the [place] denny c503 may have shifted HbA1c results compared to historical results. Based on laboratory validation testing conducted at [facility], the [place] platform relative to the Lorenz platform had an average increase in HbA1c value of < or = 0.3%. This difference is within accepted variability established by the National Glycohemoglobin Standardization Program. Note that not all individuals will have had a shift in their results and direct comparisons between historical and current results for testing conducted on different platforms is not recommended. Test Performed at: [facility] [address] [place] [address] Joshua Castorena MD Blood 09/23/2023 9:50 AM CDT 09/24/2023 2:58 AM CDT us Nirav Good DO CHEMISTRY ORDERABLES Final Re sult VANESSA STEPHENSON [phone] [facility] [address] [address] [facility] [place] [phone] * US ABDOMEN COMPLETE (01/24/2021 8:44 AM CDT) Anatomical Region Laterality Modality Abdomen Ultrasound 01/24/2021 8:44 AM CDT Impressions 01/24/2021 11:21 AM CDT IMPRESSION: Please see below. US ABDOMEN COMPLETE, 01/24/2021 8:44 AM. REASON FOR EXAM: See Diagnosis. DIAGNOSIS: LUQ abdominal pain. COMPARISON: None. TECHNIQUE: Multiplanar real-time ultrasonography of the abdomen using flores-scale imaging, supplemented by color and spectral Doppler as needed. FINDINGS: * Liver: There is increased hepatic parenchymal echogenicity with decreased through transmission consistent with hepatic steatosis. The liver is enlarged measuring 18.5 cm in cranial caudal dimension. * Gallbladder: Normal. No stones, wall thickening or pericholecystic fluid collections. No sonographic Lan's sign. * Biliary: No intra- or extra-hepatic ductal dilatation. Common bile duct measures 3.7 mm. * Spleen: Normal size, contour, and echo texture without focal lesions. Maximal dimension = 11.8 cm. * Pancreas: Incompletely visualized; unremarkable * Kidneys: No perinephric fluid, or hydronephrosis. No focal masses are identified. Right kidney measures 11.3 cm. Left kidney measures 12.6 cm. * Peritoneum: No ascites. * Imaged Aorta/IVC: The visualized aorta and IVC are within normal limits. ++++++++++++++++++++ IMPRESSION: Hepatomegaly and hepatic steatosis.. Narrative Procedure Note Edis Smith MD - 01/24/2021 IMPRESSION: Please see below. US ABDOMEN COMPLETE, 01/24/2021 8:44 AM. REASON FOR EXAM: See Diagnosis. DIAGNOSIS: LUQ abdominal pain. COMPARISON: None. TECHNIQUE: Multiplanar real-time ultrasonography of the abdomen using flores-scale imaging, supplemented by color and spectral Doppler as needed. FINDINGS: * Liver: There is increased hepatic parenchymal echogenicity with decreased through transmission consistent with hepatic steatosis. The liver is enlarged measuring 18.5 cm in cranial caudal dimension. * Gallbladder: Normal. No stones, wall thickening or pericholecystic fluid collections. No sonographic Lan's sign. * Biliary: No intra- or extra-hepatic ductal dilatation. Common bile duct measures 3.7 mm. * Spleen: Normal size, contour, and echo texture without focal lesions. Maximal dimension = 11.8 cm. * Pancreas: Incompletely visualized; unremarkable * Kidneys: No perinephric fluid, or hydronephrosis. No focal masses are identified. Right kidney measures 11.3 cm. Left kidney measures 12.6 cm. * Peritoneum: No ascites. * Imaged Aorta/IVC: The visualized aorta and IVC are within normal limits. ++++++++++++++++++++ IMPRESSION: Hepatomegaly and hepatic steatosis.. Bessie Patel [facility] US ORDERABLES Final R esult from Last 3 Months or Most Recently Relevant to Health Maintenance Insurance [facility] BLUE ACCESS/TRUE BLUE PPO Care Teams Molder Operator Relationship Specialty Start Date End Date Carlos Calvo MD [address] [place] [phone] PCP - General Family Practice 04/13/24
--- OUTSIDE RECORDS SUMMARY | 2025-06-18 11:24 | XMS_ITS | Encounter Summary ---
Author Organization [facility] Address [address] [place] [address] Care Team Providers Care Transmission Calibration Engineer Name Role Phone Rosa Isela Medrano Primary Care Provider [phone] Reason for Referral * Outpatient Services (Routine) - Closed Specialty Diagnoses / Procedures Referred By Contac t Referred To Contact Radiology Diagnoses Intervertebral lumbar disc disorder with myelopathy, lumbar region Procedures XR MYELOGRAM LUMBAR Rosa Isela Medrano FNP [address] [place] [address] Phone: tel: fax: [facility] [address] [place] [address] Phone: tel: fax: Referral ID Status Reason Start Date Expiration Date V isits Requested Visits Authorized [id number] Closed [facility] TO SCHEDULE ([facility]) 07/26/2013 08/26/2014 1 1 E LACER * Outpatient Services (Routine) - Closed Specialty Diagnoses / Procedures Referred By Contac t Referred To Contact Diagnoses Intervertebral lumbar disc disorder with myelopathy, lumbar region Procedures CT LUMBAR SPINE W CONTRAST Rosa Isela Medrano FNP [address] [place] [address] Phone: tel: fax: [facility] Pre-Registration [place] CALL TO MAKE APPOINTMENT ONLY [address] [place] [address] Phone: tel: fax: Referral ID Status Reason Start Date Expiration Date V isits Requested Visits Authorized [id number] Closed [facility] TO SCHEDULE (SGF) 08/01/2013 08/31/2013 1 1 E LACER Encounter Details Date Type Department Care Team (Latest Contact Info) Description 07/26/2013 Ancillary Orders [facility] Pre-Registration [place] CALL TO MAKE APPOINTMENT ONLY [address] [place] [address] Rosa Isela Medrano FNP [address] [place] [address] Intervertebral lumbar disc disorder with myelopathy, lumbar region (Primary Dx) Social History Tobacco Use Types Packs/Day Years Used Date Smoking Tobacco: Every Day Pipe Smokeless Tobacco: Never Alcohol Use Standard Drinks/Week Comments No 0 (1 standard drink = 0.6 oz pur e alcohol) Sex and Gender Information Value Date Recorded Sex Assigned at Not on file Legal Sex Male 2:58 AM CABLE LACER Gender Identity Not on file Sexual Orientation Not on file Occupation Industry Job Start Date Job End Date Not on file Not on file Not on file Not on file documented as of this encounter Plan of Treatment Not on file documented as of this encounter Results * CT LUMBAR SPINE W CONTRAST (08/29/2013 10:42 AM CABLE LACER) Anatomical Region Laterality Modality Spine Computed Tomogra phy 08/29/2013 10:2 4 AM CABLE LACER Impressions 08/29/2013 2:17 PM CABLE LACER IMPRESSION: See report below. Exam: CT LUMBAR SPINE W CONTRAST Date/Time of Exam: Aug 29, 2013 10:42:29 AM Reason For Exam: Intervertebral lumbar disc disorder with myelopathy, lumbar region. Technique: CT of the lumbar spine was performed following the administration of intravenous contrast. Contrast: 12 mL Omnipaque 240 were given. Comparison is made to MRI from 03/15/2012 and numbering corresponds to the labeling described on the previous exam. A transitional lumbosacral vertebral body is present which is labeled as S1. Sagittal reformations show mild retrolisthesis at L4-L5. Alignment is otherwise normal. L1 to through L4-L5: Unremarkable. L5-S1: Small right paracentral and subarticular disc protrusion that does cause mild to moderate right lateral recess narrowing and does touch and probably mildly displace the traversing right L5 nerve root. There is no significant narrowing of thecal sac. S1-2: Unremarkable. Impression: 1. Stable appearing small right-sided disc protrusion at L5-S1 which appears to touch and mildly displace the traversing right L5 nerve root. 2. Note is made of a transitional lumbosacral vertebral body labeled as S1. KRISTYN/harsh - uploaded from [employer] - Narrative Procedure Note Geoff Ford MD - 08/29/2013 IMPRESSION IMPRESSION: See report below. Exam: CT LUMBAR SPINE W CONTRAST Date/Time of Exam: Aug 29, 2013 10:42:29 AM Reason For Exam: Intervertebral lumbar disc disorder with myelopathy, lumbar region. Technique: CT of the lumbar spine was performed following the administration of intravenous contrast. Contrast: 12 mL Omnipaque 240 were given. Comparison is made to MRI from 03/15/2012 and numbering corresponds to the labeling described on the previous exam. A transitional lumbosacral vertebral body is present which is labeled as S1. Sagittal reformations show mild retrolisthesis at L4-L5. Alignment is otherwise normal. L1 to through L4-L5: Unremarkable. L5-S1: Small right paracentral and subarticular disc protrusion that does cause mild to moderate right lateral recess narrowing and does touch and probably mildly displace the traversing right L5 nerve root. There is no significant narrowing of thecal sac. S1-2: Unremarkable. Impression: 1. Stable appearing small right-sided disc protrusion at L5-S1 which appears to touch and mildly displace the traversing right L5 nerve root. 2. Note is made of a transitional lumbosacral vertebral body labeled as S1. KRISTYN/harsh - uploaded from [employer] - Rosa Isela Medrano FRONT END TECHNICIAN CT ORDERABLES Final Result * XR MYELOGRAM LUMBAR (08/29/2013 10:00 AM CABLE LACER) Anatomical Region Laterality Modality Spine Computed Radiogr aphy 08/29/2013 9:59 AM CABLE LACER Impressions 08/29/2013 2:10 PM CABLE LACER IMPRESSION: See report below. Exam: XR MYELOGRAM LUMBAR Date/Time of Exam: Aug 29, 2013 10:00:14 AM Reason For Exam: Intervertebral lumbar disc disorder with myelopathy, lumbar region. 12 mL of Omnipaque 240 were given. Myelogram was performed by PERICO Ruelas. Lumbar spine shows normal alignment and no narrowing of the thecal sac, spinal stenosis or nerve root compression is seen. No significant degenerative changes are identified. Electronic stimulator is projected over the lower abdomen with leads extending superiorly off the radiograph. Impression: Lumbar spine shows no significant abnormality. Please see CT examination. Rufus - uploaded from [employer]- Narrative Procedure Note Geoff Ford MD - 08/29/2013 IMPRESSION IMPRESSION: See report below. Exam: XR MYELOGRAM LUMBAR Date/Time of Exam: Aug 29, 2013 10:00:14 AM Reason For Exam: Intervertebral lumbar disc disorder with myelopathy, lumbar region. 12 mL of Omnipaque 240 were given. Myelogram was performed by PERICO Ruelas. Lumbar spine shows normal alignment and no narrowing of the thecal sac, spinal stenosis or nerve root compression is seen. No significant degenerative changes are identified. Electronic stimulator is projected over the lower abdomen with leads extending superiorly off the radiograph. Impression: Lumbar spine shows no significant abnormality. Please see CT examination. 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
--- OUTSIDE RECORDS SUMMARY | 2025-06-18 11:24 | XMS_ITS | Encounter Summary ---
Author Organization [facility] Address [address] [place] [address] Care Team Providers Care Underwriting Analyst Name Role Phone Rosa Isela Medrano TANK SHOP SUPERVISOR Primary Care Provider [phone] Reason for Referral * Outpatient Services (Routine) - Closed Specialty Diagnoses / Procedures Referred By Contconstanza t Referred To Contact Diagnoses Thoracic or lumbosacral neuritis or radiculitis, unspecified Procedures XR FLUORO NEEDLE GUIDANCE Ganesh Zepeda MD NO ADDRESS ON FILE Referral ID Status Reason Start Date Expiration Date Visits Re quested Visits Authorized [id number] Closed 09/21/2013 10/22/2014 1 1 Encounter Details Date Type Department Care Team (Late st Contact Info) Description 09/21/2013 Ancillary Orders [facility] Pain Management Procedures [place] [address] [place] [address] Ganesh Zepeda MD NO ADDRESS ON FILE Thoracic or lumbosacral neuritis or radiculitis, unspecified (Primary Dx) Social History Tobacco Use Types Packs/Day Years Used Date Smoking Tobacco: Every Day Pipe Smokeless Tobacco: Never Alcohol Use Standard Drinks/Week Comments No 0 (1 standard drink = 0.6 oz pur e alcohol) Sex and Gender Information Value Date Recorded Sex Assigned at Not on file 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 Exam was auto-finalized. Procedure Note Judson Hudson, RT - 09/21/2013 Order information only. Exam was auto-finalized. us Ganesh Zepeda MD DIAGNOSTIC IMAGING ORDERAB LES Final Result documented in this encounter Visit Diagnoses Diagnosis Thoracic or lumbosacral neuritis or radiculitis, unspecified- Primary Thoracic or lumbosacral neuritis or radiculitis, unspecified documented in this encounter Care Teams Underwriting Analyst Relationship Specialty Start Date End Date Rosa Isela Medrano FNP [address] [place] [address] PCP - General NURSE PRACTITIONER 08/02/13 documented as of this encounter
--- OUTSIDE RECORDS SUMMARY | 2025-06-18 11:24 | XMS_ITS | Encounter Summary ---
Author Organization [facility] Address [address] [place] [address] Care Team Providers Care Lens Examiner Name Role Phone Rosa Isela Medrano Primary Care Provider [phone] Encounter Details Date Type Department Care Team (Latest Contact Info) Description 05/01/1998 Outpatient Historical [facility] Medicine [address] [address] Bryn Duran MD [address] [place] [phone] Open wound of knee, leg (except thigh), and ankle, without mention of complication (Primary Dx) Social History Tobacco Use Types Packs/Day Years Used Date Smoking Tobacco: Never Assessed Sex and Gender Information Value Date Recorded Sex Assigned at Not on file 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
[2025-06-18 11:47] VITALS: BP 137/93; PULSE 87; O2SAT 91
[2025-06-18 11:53] LABS: Hematocrit 47.8 % (37-53); Hemoglobin 16.60 g/dL (11.27-16.99); Mean Corpuscular HGB Conc 34.7 g/dL (30-55); Mean Corpuscular Hemoglobin 30.7 pg (27-33); Mean Corpuscular Volume 88.5 fl (82-101); Nucleated Red Blood Cells % 0 %; Platelet Count 186 10^3/cmm (157-399); Red Blood Count 5.40 10^6/uL (3.85-5.65); White Blood Count 8.06 10^3/uL (3.29-11.43)
--- NOTE | 2025-06-18 12:09 | ECG_ITS ---
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
[2025-06-18 12:10] LABS: Respiratory Syncytial Virus Ce NEGATIVE (Negative); SARS-CoV-2 PCR NEGATIVE (Negative)
[2025-06-18 12:16] LABS: Alanine Aminotransferase 17 U/L (0-41); Albumin Level 4.9 g/dL (3.5-5.2); Alkaline Phosphatase 87 U/L (40-130); Aspartate Amino Transferase 22 U/L (0-40); Blood Urea Nitrogen 8 mg/dL (6-20); Calcium 8.9 mg/dL (8.5-10.5); Carbon Dioxide 23 mmol/L (22-29); Chloride 102 mmol/L (98-107); Globulin 2.0 g/dL (1.3-4.6); Glucose 103 mg/dL (65-115); Osmolality Calculated 291 mOsm/kg (285-295); Sodium 141 mmol/L (136-145); Total Protein 6.9 g/dL (6.6-8.7); Troponin(5th) Baseline < 6 ng/L (0-15)
[2025-06-18 12:30] VITALS: BP 141/100; PULSE 87; RESP 18; O2SAT 96
[2025-06-18 12:47] LABS: Anion Gap 19.7 (5-19); Potassium 3.7 mmol/L (3.5-5.1)
[2025-06-18 13:00] VITALS: BP 132/96; PULSE 78; RESP 14; O2SAT 95
[2025-06-18 13:46] VITALS: BP 141/102; PULSE 82; O2SAT 95
== END 2025-06-18 13:47 | disposition home or self-care (01) ==
PROVIDERS: Emergency Provider Family Medicine; PCP Family Medicine
DX: R07.89 Other chest pain (principal); B34.9 Viral infection, unspecified; Z79.82 Long term (current) use of aspirin; Z11.52 Encounter for screening for COVID-19
CPT/HCPCS: 36415; 71045; 80053; 84484; 85025; 87637; 93005; 99285